=== PATIENT | female | born 1965 | race Caucasian/White ===

== ENCOUNTER → 2018-08-23 | Outpatient (CLI) | payer BC ==
--- NOTE | 2018-08-23 17:56 | Diagnostic Imaging Report ---
INDICATION: Several month history of left ankle pain. No known injury. TECHNIQUE: Three views of the left ankle. CORRELATION STUDY: None. FINDINGS: The bony alignment is anatomic. The talar dome is intact. The ankle mortise is maintained. There is no acute fracture or dislocation. Very small bone density adjacent to the tip of medial malleolus likely of no significance. Prominent plantar calcaneal spur, 8 mm in length. Soft tissues unremarkable. IMPRESSION: Negative for acute bony abnormality of the ankle. Dictated on workstation # [id number]
== END ==
LOC: RAD FS 15:36
PROVIDERS: ATTEND Nurse Practitioner
DX: M25.572 Pain in left ankle and joints of left foot (principal)
CPT/HCPCS: 73610

== ENCOUNTER → 2022-12-10 | Outpatient (CLI) | payer BC ==
--- NOTE | 2022-12-10 16:43 | Diagnostic Imaging Report ---
EXAMINATION: Chest 2 view HISTORY: CHRONIC COUGH COMPARISON: None available. FINDINGS: Heart size and pulmonary vasculature are normal. The lungs are clear without consolidation, pleural effusion, or pneumothorax. Degenerative changes of the thoracic spine. Osseous structures are otherwise intact. IMPRESSION: 1. No acute radiographic abnormality in the chest. Dictated by: Dictated on workstation # [id number]
== END ==
LOC: RAD 15:53
PROVIDERS: ATTEND Family Medicine
DX: R05.3 Chronic cough (principal)
CPT/HCPCS: 71046